=== PATIENT | female | born 1995 ===

== ENCOUNTER 2019-08-07 10:13 | Emergency (ER) | payer OTHER ==
--- NOTE | 2019-08-07 10:19 | UC ---
FLU HPI - HPI Summary HPI Summary: 24 yo female presents with flu-like symptoms. She tells me that for the past 2 days she has had sinus congestion, cough, body aches, and fatigue. She notes that many of her co-workers have been sick with colds, strep, PNA, and the flu and she is concerned about these today. Has been taking OTC mucinex, tylenol, ibuprofen, and cold medicine with mild relief. [place] feverish yesterday, but did not take her temp. Denies SOB, chest pain, abdominal pain, dysuria. Does not smoke - History of Current Complaint Stated Complaint: BODYACHES SINUS ISSUE Time Seen by Provider: 08/07/19 10:19 Hx Obtained From: Patient Onset/Duration: Sudden Onset Severity Currently: Moderate Severity Initially: Moderate Pain Intensity: 5 Pain Scale Used: 0-10 Numeric - Allergy/Home Medications Allergies/Adverse Reactions: Allergies Allergy/AdvReac Type Severity Reaction Status Date / Time No Known Allergies Allergy Verified 08/07/19 10:26 Home Medications: Home Medications Control 1 mg PO DAILY WITH MEAL 08/07/19 [History Confirmed 08/07/19] PMH/Surg Hx/FS Hx/Imm Hx - Additional Past Medical History Additional PMH: None - Surgical History Surgical History: None - Family History Known Family History: Positive: None - Social History Occupation: Employed Full-time Lives: With Family Alcohol Use: Occasionally Substance Use Type: None Smoking Status (MU): Never Smoked Tobacco Review of Systems All Other Systems Reviewed And Are Negative: No Constitutional: Positive: Fatigue, Other - Body aches Skin: Positive: Negative Eyes: Positive: Negative ENT: Positive: Sore Throat, Nasal Discharge, Sinus Congestion, Sinus Pain/ Tenderness Respiratory: Positive: Cough Cardiovascular: Positive: Negative Gastrointestinal: Positive: Negative Neurological: Positive: Negative Psychological: Positive: Negative Physical Exam - Summary Physical Exam Summary: GENERAL: NAD. WDWN. No pain distress. SKIN: No rashes, sores, lesions, or open wounds. HEENT: Head: AT/NC Eyes: EOM intact. Conjunctiva clear without inflammation or discharge. Ears: Hearing grossly normal. TMs intact, no bulging, erythema, or edema. Nose: Nasal mucosa pink and moist. NTTP maxillary and frontal sinus. Throat: Posterior oropharynx without exudates, erythema, or tonsillar enlargement. Uvula midline. NECK: Supple. Nontender. No lymphadenopathy. CHEST: CTAB. No accessory muscle use. Breathing comfortably and in no distress. CV: RRR. Pulses intact. Cap refill <2seconds NEURO: Alert. PSYCH: Age appropriate behavior. Triage Information Reviewed: Yes Vital Signs: Vital Signs: Temp Pulse Resp BP Pulse Ox 98.2 F 88 18 111/83 99 08/07/19 10:22 08/07/19 10:22 08/07/19 10:22 08/07/19 10:22 08/07/19 10:22 Laboratory Tests 08/07/19 08/07/19 10:36 10:39 Influenza A (Rapid) Negative Influenza B (Rapid) Negative Group A Strep Rapid Negative Vital Signs Reviewed: Yes Flu Course/Dx - Course Course Of Treatment: POC influenza and strep negative. Suspect viral flu-like illness. Advised to continue OTC supportive care and f/u if symptoms do not improve - Differential Dx/Diagnosis Provider Diagnosis: Flu-like symptoms Discharge ED - Sign-Out/Discharge Documenting (check all that apply): Patient Departure All imaging exams completed and their final reports reviewed: No Studies - Discharge Plan Condition: Stable Disposition: HOME Patient Education Materials: Viral Syndrome (ED) Forms: *Work Release Referrals: No Primary Care Phys,NOPCP [Primary Care Provider] - Additional Instructions: Your symptoms are likely from a viral infection. Viral infections do not respond to antibiotics and are limited to the treatment of symptoms. Viral infections typically run their course in 7-10 days. Drink plenty of fluids, especially if you are running any fever. Use salt water gargles several times a day. Take over the counter acetaminophen (Tylenol) or ibuprofen (Advil, Motrin) according to directions as needed for pain or fever. You may also use Chloraseptic spray or Cepacol lonzenges according to directions which contain a numbing medication and can provide some temporary relief from a sore throat. Return here or follow up with your primary care provider in 7 days if symptoms persist. - Billing Disposition and Condition Condition: STABLE Disposition: Home
--- OUTSIDE RECORDS SUMMARY | 2019-08-07 10:21 | XMS REPORT | Continuity of Care Document ---
:1995 External Reference #:[id number] Author Name Yair Russ MD FAAP (transmitted by agent of provider Guest 1) Address [address] [place] [address] Care Team Providers Name Role Phone Yair Russ MD FAAP - Pediatrics Care Team Information [employer] Unavailable Problems Description No Information Available Social History Type Date Description Comments Sex Unknown Tobacco Use Start: Unknown Never Smoked Cigarettes ETOH Use Never used alcohol Recreational Drug Use Never Used Drugs Allergies, Adverse Reactions, Alerts Active Allergies Reaction Severity Comments Date NKDA 10/07/2010 No Known Allergies 02/21/2005 Seasonal 06/19/2011 Cats 09/25/2013 Medications Active Medications SIG Qnty Indications Ordering Provider Date No Active Medications Unknown 03/08/2019 History Medications Ibuprofen 1 tab by mouth 30tabs B34.9 Yair Russ, 03/07/2019 - 600mg every 6 hour MD [facility] 03/08/2019 Tablets Medications Administered in Office Medication SIG Qnty Indications Ordering Provider Date TB Intradermal Test Yair Russ MD [facility]AP 10/19/2018 Injection TB Intradermal Test Yair Russ MD [facility]AP 03/31/2017 Injection TB Jacquie Test-Old Yair Russ MD [facility]AP 02/26/2000 Injection Lead Yair Russ MD FAAP 01/07/1998 Injection Immunizations CPT Code Status Date Vaccine Lot # [id number] Given 03/31/2017 Tdap TDAP [id number] 86458 Given 07/01/2016 Influenza Virus FLU 3+- [id number] Vaccine,Quadrivalent,Split,Preservati ve [id number] 92401 Given 03/14/2015 Meningococcal Conjugate Vaccine [id number] (Menectra/Menveo) Groups A,C,Y,W 01369 Given 10/20/2014 Hepatitis B Immunization [id number] 46108 Given 06/19/2014 Influenza Virus FLU-OVER 3 FED [id number] Vaccine,Quadrivalent,Split,Preservati ve FREEover3 39305 Given 06/19/2014 HPV (Gardesil) GARDESIL-FED [id number] 14935 Given 08/08/2013 Influenza Immunization over 3 [id number] 93727 Given 08/08/2013 HPV (Gardesil) [id number] 45533 Given 06/04/2012 Influenza Immunization over 3 FLU- over 3([id number]) 29138 Given 03/30/2012 HPV (Gardesil) 46853 Given 05/19/2010 Varicella (Chicken Pox/ Varivax) [id number] Immunization 99679 Given 03/07/2008 Meningococcal Conjugate Vaccine [id number] [id number] (Menectra/Menveo) Groups A,C,Y,W 32681 Given 03/07/2008 Tdap 69590 Given 03/18/2001 DTaP Immunization 60507 Given 03/18/2001 MMR Virus Immunization 39521 Given 03/18/2001 Poliomyelitis Immunization 85357 Given 12/03/1998 Varicella (Chicken Pox/ Varivax) Immunization 88118 Given 12/03/1998 MMR Virus Immunization 18682 Given 06/10/1998 DTP & Hib Immunization 57213 Given 1997 DTP & Hib Immunization 30875 Given 1997 Oral Poliovirus-Old 48930 Given 1997 Hepatitis B Immunization 41138 Given 1997 DTP & Hib Immunization 01782 Given 1997 Oral Poliovirus-Old 41959 Given 1997 Hepatitis B Immunization 40259 Given 1997 DTP & Hib Immunization 78602 Given 1997 Oral Poliovirus-Old 00605 Given 1997 Hepatitis B Immunization Vital Signs Date Vital Result Comment 07/05/2019 10:39am Body Temperature 98.2 F Height 65 inches 5'5" Weight 159.00 lb BMI (Body Mass Index) 26.5 kg/m2 03/07/2019 10:59am Body Temperature 98.0 F Height 65 inches 5'5" Weight 165.00 lb BMI (Body Mass Index) 27.5 kg/m2 Results Description No Information Available Procedures Description No Information Available Medical Devices Description No Information Available Encounters Type Date Location Provider Dx Diagnosis Office Visit 03/07/2019 [place], B34.9 Viral infection, 11:30a MD [facility] unspecified Assessments Date Code Description Provider 07/05/2019 R51 Headache Yair Russ MD FAAP 07/05/2019 J01.90 Acute sinusitis, unspecified Yair Russ MD [facility]AP 03/07/2019 B34.9 Viral infection, unspecified Yair Russ MD FAAP Plan of Treatment 07/05/2019 - Yair Russ MD FAAPR51 HeadacheComments:Maintain adequate hydrationRestContinue with motrin as neededNeurology referral for [id number] Acute sinusitis, unspecifiedComments:Augmentin 875/125mg bid x7 daysTylenol or motrin as needed Functional Status Description No Information Available Mental Status Description No Information Available Referrals Refer to Reason for Referral Status Appt Date Frequent headaches Created
[2019-08-07 10:48] LABS: Influenza A Molecular NEGATIVE (Negative); Influenza B Molecular NEGATIVE (Negative)
== END 2019-08-07 10:55 | disposition home or self-care (01) ==
LOC: UCEAST 10:13
DX: R09.81 Nasal congestion (principal); R05 Cough; R52 Pain, unspecified; R53.83 Other fatigue; R50.9 Fever, unspecified; J02.9 Acute pharyngitis, unspecified; R09.89 Other specified symptoms and signs involving the circulatory and respiratory systems
CPT/HCPCS: 87651; 99201; G0463